=== PATIENT | female | born 1975 | race Hispanic/Latino ===

== ENCOUNTER 2023-08-14 23:23 | Emergency (ER) | payer OTHER ==
[~2023-08-14] VITALS: Ht 162.6 cm; Wt 133.5 kg
[2023-08-15] MEDS: KETOROLAC 60 MG VIAL (30MG/ML) IM ONE (00:06)
[2023-08-15] MEDS ORDERED: IBUP-2077 PO (01:17)
[2023-08-15 01:18] VITALS: BP 132/62; PULSE 71; RESP 16; O2SAT 98
== END 2023-08-15 01:32 | disposition home or self-care (01) ==
LOC: EDH 23:23
DX: S86.812A Strain of other muscle(s) and tendon(s) at lower leg level, left leg, initial encounter (principal); X58.XXXA Exposure to other specified factors, initial encounter; Y93.89 Activity, other specified; Y92.89 Other specified places as the place of occurrence of the external cause; Y99.8 Other external cause status; Z90.49 Acquired absence of other specified parts of digestive tract; Z98.890 Other specified postprocedural states
CPT/HCPCS: 99283; 73562; 96372; J1885